=== PATIENT | male | born 1955 | race Caucasian/White ===

== ENCOUNTER 2016-07-10 08:29 | Outpatient (CLI) | payer MEDICARE ==
[~2016-07-10] VITALS: Ht 182.9 cm; Wt 72.7 kg
--- NOTE | ~2016-07-10 | HEMODYNAMI ---
PATIENT:AYE MATHIS MEDICAL RECORD: [id number] : 51 LOCATION:[facility] ADMISSION DATE: 07/10/16 Generatedon:07/10/201610:45 Patient name: AYE MATHIS Patient #: [id number] SSN: [id number] : 1955 Date of study: 07/10/2016 Page: Of Hemodynamic Procedure Report Patient Data Patient Demographics Procedure consent was obtained First Name: AYE Gender: Male Last Name: DEL : 1955 Patient #: [id number] Age: 60 year(s) Race: SSN: [id number] Additional ID: [id number] Contact details Address: [address] [place] [address] State: [place] City: [place] Zip code: [address] Past Medical History Allergies Allergen Reaction Date Comments Reported Penicillins 05/04/2014 Other allergy 05/04/2014 RED DYE Other allergy 07/10/2016 iodine Admission Admission Data Admission Date: 07/10/2016 Admission Time: 8:29 Arrival Date: 07/10/2016 Arrival Time: 10:30 Admit Source: Other Insurance Payor: Medicare Height (in.): 72 BSA: 1.93 (m2) Height (cm.): 182.88 BMI: 21.43 (kg/m2) Weight (lbs.): 158 Weight (kg.): 71.67 Lab Results Lab Result Date: 07/10/2016 Lab Result Time: 0:00 Biochemistry Name Units Result Min Max BUN mg/dl 23 --(----)-* 7 18 Creatinine mg/dl 0.9 --(-*--)-- 0.6 1.3 CBC Name Units Result Min Max Hemoglobin g/dl 12.9 -*(----)-- 13.5 17.5 Procedure Procedure Types Cath Procedure Diagnostic Procedure LHC LHC w/Coronaries Miscellaneous Procedures Moderate Sedation up to 30 minutes Procedure Description Procedure Date Procedure Date: 07/10/2016 Procedure Start Time: 10:34 Procedure End Time: 10:43 Procedure Staff Name Function Negro Guzmán MD Performing Physician Linda Yan RN Nurse Layne Byrne RT Scrub Erickson [place] RT Monitor Indication Angina Procedure Data Cath Procedure Fluoroscopy Diagnostic fluoroscopy Total fluoroscopy Time: 1.6 time: 1.6 min min Diagnostic fluoroscopy Total fluoroscopy dose: dose: 233.32 mGy 233.32 mGy Contrast Material Contrast Material Type Amount (ml) Isovue 370 97 Entry Location Entry Primary Successful Side Size Upsize Upsize Entry Closure [place]ton ccessful Closure Location (Fr) 1 (Fr) 2 (Fr) Remarks Device Remarks Radial Right 6 Fr Mechanical artery Short Compression Estimated blood loss: 5 ml Diagnostic catheters Device Type Used For End Catheter Placement Terumo 5Fr Jose Raul 110cm Multi-vessel catheter Angiography Procedure Complications No complications Procedure Medications Medication Administration Route Dosage Oxygen NC 2 l/min Heparin Flush Bag added to field 2 bags (1000units/500ml NS) Radial Cocktail added to field 1 syringe (Verapomil 2mg/Nitro 400mcg/Heparin 1500units) Fentanyl I.V. 50 mcg Versed I.V. 1 mg Fentanyl I.V. 25 mcg Versed I.V. 0.5 mg Fentanyl I.V. 25 mcg Versed I.V. 0.5 mg Radial Cocktail I.A. 1 syringe (Verapomil 2mg/Nitro 400mcg/Heparin 1500units) Hemodynamics Rest BSA: 1.93 (m2) HGB: 12.9 (g/dl) O2 Consumption: Estimated: 227.32 (ml/min) O2 Co nsumption indexed: Estimated:117.78 (ml/min/m) Heart Rate: 72 (bpm) Pressure Samples Time Site Value (mmHg) Purpose Heart Use Rate(bpm) 10:36 LV 11/4,8 Snapshot 92 Snapshots Pre Cath Intra NCS Post Cath Vital Signs Time Heart Resp SPO2 NIBP (mmHg) Rhythm Pain Sedation Rate (ipm) (%) Status Level (bpm) 10:17:11 75 20 97 145/80(124) NSR 0 (11) 10(A) , No pain 10:21:34 72 23 100 136/81(112) NSR 0 (11) 10(A) , No pain 10:25:54 71 22 99 135/81(114) NSR 0 (11) 10(A) , No pain 10:30:12 80 18 98 135/78(111) NSR 0 (11) 9(A) , No pain 10:34:26 80 16 93 135/79(120) NSR 0 (11) 9(A) , No pain 10:38:36 80 18 92 121/75(94) NSR 0 (11) 9(A) , No pain 10:42:52 89 16 96 121/76(101) NSR 0 (11) 9(A) , No pain Medications Time Medication Route Dose Verified Delivered Reason Notes Effectiveness by by 10:23:40 Oxygen NC 2 l/min Linda Linda used for Yan Yan well tester RN 10:23:51 Heparin Flush added 2 bags Linda Linda used for Bag to Yan Yan procedure (1000units/500ml field RN RN NS) 10:23:57 Radial Cocktail added 1 Linda Linda used for (Verapomil to syringe Yan Yan procedure 2mg/Nitro field RN RN 400mcg/Heparin 1500units) 10:27:43 Fentanyl I.V. 50 mcg Linda Linda for sedation Yan Yan RN RN 10:27:48 Versed I.V. 1 mg Linda Linda for sedation Yan Yan RN RN 10:32:37 Fentanyl I.V. 25 mcg Linda Linda for sedation Yan Yan RN RN 10:32:47 Versed I.V. 0.5 mg Linda Linda for sedation Yan Yan RN RN 10:34:56 Fentanyl I.V. 25 mcg Linda Linda for sedation Yan Yan RN RN 10:35:03 Versed I.V. 0.5 mg Linda Linda for sedation Yan Yan RN RN 10:36:28 Radial Cocktail I.A. 1 Linda Negro for (Verapomil syringe Yuriy conroy 2mg/Nitro RN 400mcg/Heparin 1500units) Procedure Log Time Note 10:00:30 Linda Yan RN sent for patient. Start room use. 10:08:08 Informed consent obtained and on chart 10:08:44 Indication : Angina 10:08:47 Diagnostic Cath Status : Elective 10:08:59 Patient Height : 182.88 inches 10:09:11 Patient Weight : 71.67 lbs 10:09:11 Insurance Payor : Medicare 10:09:16 Arrival Date: 07/10/2016 10:30:00 AM 10:09:22 Admit Source: Other 10::25 Lab Result : Creatinine 0.9 mg/dl 10::25 Lab Result : BUN 23 mg/dl 10:: Lab Result : Hemoglobin 12.9 g/dl 10:11:38 Time tracking: Regular hours 10:11:42 Plan of Care:Hemodynamics will remain stable., Cardiac rhythm will remain stable., Comfort level will be maintained., Respiratory function will remain adequate., Patient/ family verbilizes understanding of procedure., Procedure tolerated without complication., Recovers from procedure without complications.. 10:11:50 Patient received from Pre/Post Procedure Room to CCL 3 Alert and oriented. Tansferred to table in Supine position. 10:11:52 Warm blankets applied, and alex hugger turned on for patient comfort. 10:11:52 Correct patient and procedure confirmed by team. 10:11:53 ECG and BP/O2 sat monitors applied to patient. 10:15:55 Baseline sample Acquired. 10:15:55 Vital chart was started 10:15:59 Rhythm: sinus rhythm 10:16:01 Full Disclosure recording started 10:16:11 H&P Date Dictated: 07/03/2016 Within 30 days and on chart., H&P Addendum completed by physician on day of procedure. (MUST COMPLETE FOR ALL OUTPATIENTS). 10:16:13 Pre-procedure instructions explained to patient. 10:16:13 Pre-op teaching completed and patient verbalized understanding. 10:16:14 Family in waiting room. 10:16:15 Patient NPO since Midnight. 10:16:25 Patient allergic to Other allergyiodine 10:16:29 Is the patient allergic to Iodine/contrast media? Yes. 10:16:30 Was the patient premedicated? Yes 10:16:32 Is patient on blood thinner?Yes 10:16:35 ACC The patient was administered the following blood thiners within the last 24 hours: ACCAspirin 10:16:37 Patient diabetic? Yes. 10:21:21 If diabetic: On Metformin? Yes 10:21:25 If on Metformin: Last Dose? 07/09/2016 10:21:29 Previous problem with sedation/anesthesia? No ? 10:22:22 Snore? Yes 10:22:23 Sleep apnea? No 10:22:24 Deviated septum? No 10:22:24 Opens mouth fully? Yes 10:22:25 Sticks out tongue? Yes 10:22:27 Airway obstruction? No ? 10:22:31 Dentures? No ? 10:22:34 Pre procedure: right dorsailis pedis pulse 1+ Palpable, but thready & weak; easily obliterated 10:22:36 Patient pain scale 0/10 ?. 10:22:41 IV patent on arrival in left forearm with 0.9% NaCl at [facility]. 10:22:44 Lab results completed and on chart. 10:22:49 Right Radial & Right Groin area was prepped with chlora-prep and draped in sterile fashion 10:22:50 Alarms reviewed by R. N. 10:22:50 Sharps counted by scrub and verified by R.N. 10::58 Physician paged 10:23:40 Oxygen 2 l/min NC was given by Linda Yan RN; used for procedure; 10:23:51 Heparin Flush Bag (1000units/500ml NS) 2 bags added to field was given by Linda Yan RN; used for procedure; 10:23:57 Radial Cocktail (Verapomil 2mg/Nitro 400mcg/Heparin 1500units) 1 syringe added to field was given by Linda Yan RN; used for procedure; 10:24:58 Physician arrived 10::58 --------ALL STOP TIME OUT------ 10:24:58 Final Timeout: patient, procedure, and site verified with staff and physician. All members of the team are in agreement. 10:25:00 Right Radial & Right Groin site verified by team. 10:25:03 Physical assessment completed. ASA score P 2 - A patient with mild systemic disease as per Negro Guzmán MD. 10:25:06 Sedation plan: IV Moderate Sedation Versed, Fentanyl 10:25:10 Use device set Radial Dx 10:25:11 Acist Syringe opened to sterile field. 10:25:11 Medline Cath Pack opened to sterile field. 10:25:11 Bag Decanter opened to sterile field. 10:25:12 Terumo 6Fr Slender Glidesheath opened to sterile field. 10:25:12 St Javier 260cm J .035 wire opened to sterile field. 10:25:13 Acist Hand Control opened to sterile field. 10:25:13 Acist Manifold opened to sterile field. 10:25:13 Tegaderm 4 x 4 opened to sterile field. 10:27:43 Fentanyl 50 mcg I.V. was given by Linda Yan RN; for sedation; 10:27:48 Versed 1 mg I.V. was given by Linda Yan RN; for sedation; 10:32:36 Procedure started. 10:32:37 Fentanyl 25 mcg I.V. was given by Linda Yan RN; for sedation; 10::47 Versed 0.5 mg I.V. was given by Linda Yan RN; for sedation; 10:34:09 Local anesthetic to right radial artery with Lidocaine 2% by Negro Guzmán MD.INITIAL ACCESS ONLY 10:34:26 A 6 Fr Short sheath was inserted into the Right Radial artery 10:34:53 Zero performed for pressure channel P1 10:34:56 Fentanyl 25 mcg I.V. was given by Linda Yan RN; for sedation; 10:35:03 Versed 0.5 mg I.V. was given by Linda Yan RN; for sedation; 10:35:56 A Terumo 5Fr Jose Raul 110cm catheter was advanced over the wire and used for Multi-vessel Angiography. 10:36:28 Radial Cocktail (Verapomil 2mg/Nitro 400mcg/Heparin 1500units) 1 syringe I.A. was given by Negro Guzmán MD; for vasodilation; 10:36:47 LV hemodynamics recorded. 10:36:48 LV gram done using ALDRICH 10:36:55 EF : 65 % 10:37:01 RCA angiography performed. 10:37:16 Injector settings: Ml/sec: 3, Volume: 6, 10:38:20 LCA angiography performed. 10:39:18 Injector settings: Ml/sec: 3, Volume: 6, 10:40:43 Catheter removed. 10:41:39 Terumo TR Band Standard opened to sterile field. 10:41:50 Sheath removed intact; hemostasis achieved with Mechanical Compression to the Right Radial artery. 10:41:51 Procedure ended.(Physican Out) 10:42:09 Fluoroscopy time 01.60 minutes. 10:42:15 Flurop Dose total: 233.32 10:42:15 Fluoroscopy dose: 233.32 mGy 10:42:20 Contrast amount:Isovue 370 97ml. 10:42:23 Sharps counted by scrub and verified by R.N. 10:42:25 TR band inflated with 8cc of air. 10:42:26 Insertion/operative site no bleeding no hematoma. 10:42:30 Post right radial artery:stable 10:42:32 Post Procedure Pulses reassessed and unchanged 10:42:34 Post procedure rhythm: unchanged. 10:42:37 Estimated blood loss: 5 ml 10:42:38 Post procedure instruction explained to patient.Patient verbalizes understanding. 10:42:39 Patient needs reinforcement of post procedure teaching. 10:43:05 Procedure type changed to Cath procedure, Diagnostic procedure, LHC, LHC w/Coronaries, Miscellaneous Procedures, Moderate Sedation up to 30 minutes 10:43:07 Procedure and supply charges have been captured, reviewed, submitted and are correct. 10:43:11 Procedure Complication : No complications 10:43:14 Vital chart was stopped 10:43:14 See physician's report for complete and final results. 10:43:16 Report given to Pre/Post Procedure Room. 10:43:19 Patient transfered to Pre/Post Procedure Room with Stretcher. 10:43:22 Procedure ended. 10:43:22 Full Disclosure recording stopped 10:43:31 End room use (Document Last) Device Usage Item Name Manufacture Quantity Catalog Hospital Part Current Minimal Lot# / Number Charge Number Stock Stock Serial# Code Acist Acist 1 49511 994406 133413 188043 20 Syringe [employer] Inc Medline Cardinal 1 [id number] 627223 20849 454038 5 Cath Pack Health Bag Microtek 1 2001S 042501 85837 203881 5 Decanter [employer] Terumo 6Fr Terumo 1 [id number] 599743 175792 695723 [address] J[address] St Javier 1 124075 550419 562558 003409 30 260cm J .035 wire Acist Hand Acist 1 39938 758613 989567 295736 5 Control [employer] Inc Acist Acist 1 57480 783399 620579 221287 5 Fear Hunters [employer] Tegaderm 4 3M 1 [id number] 458781 768220 361309 5 x 4 Terumo 5Fr Terumo 1 81-4544 309936 322511 624254 5 Jose Raul 110cm catheter Terumo TR Terumo 1 [id number] 151029 957052 036955 40 Band Standard Signature Audit [place] Stage Time Signature Unsigned Intra-Procedure 07/10/2016 Layne Byrne 10:45:27 AM RT(R) Signatures Monitor : Erickson [place] RT Signature : Date : Time : [facility] [address] [place] [address]
[~2016-07-10 08:29] MED LIST: BAYER CHEWABLE81 MG PO; GLUCOPHAGE500 MG PO; GLUCOTROL XL 5 M5 MG PO; KLONOPIN1 MG PO; NITROQUICK0.4 MG SL; NORCO 10/325 TA1 TA1 PO; PLAVIX75 MG PO; PRAVACHOL40 MG PO
[2016-07-10 09:08] VITALS: BP 139/64; Ht 182.9 cm; Wt 72.7 kg
[2016-07-10 09:21] LABS: BASOPHILS 0.1 % (0.0-2.0); EOSINOPHILS 0 % (0-7); HEMATOCRIT 40.5 % (42.0-54.0); HEMOGLOBIN 12.9 g/dL (13.5-17.5); IMMATURE GRANULOCYTES 0.2 % (0-5); LYMPHOCYTES 8.7 % (15-50); MCHC 31.9 g/dL (31.0-37.0); MEAN PLATELET VOLUME 10.5 fL (7.4-10.4); MONOCYTES 5.1 % (2-11); NEUTROPHILS 85.9 % (40-80); PLATELET COUNT 175 10x3/uL (130-400); RBC 4.45 10x6/uL (4.20-6.10); RDW 15.8 % (11.5-14.5); WBC 10.3 10x3/uL (4.8-10.8)
[2016-07-10 09:42] LABS: CALC OSMOLALITY 284 mosm/kg (275-300); CARBON DIOXIDE 26.6 mmol/L (21.0-32.0); CHLORIDE - SERUM 104 mmol/L (98-107); CREATININE - SERUM 0.9 mg/dL (0.6-1.3); GLUCOSE 194 mg/dL (74-106); POTASSIUM - SERUM 4.9 mmol/L (3.5-5.1); SODIUM 138 mmol/L (136-145); UREA NITROGEN 23 mg/dL (7-18); eGFR NON AFRICAN AMERICAN > 90 mL/min (90-120)
--- NOTE | 2016-07-10 11:11 | NUR ---
1055 RECEIVED PT FROM [employer]UNTER TRAPPER, PT IS DROWSY, DENIES ANY C/O. TR BAND CDI TO RIGHT WRIST, AREA IS FREE FROM BLEEDING OR HEMATOMA. RIGHT HAND FINGERS WARM TO TOUCH, CAP REFILL IS BRISK. WRIST BRACE IS IN PLACE. FAMILY AT BEDSIDE, CALL LIGHT IN REACH. PO FLUIDS SERVED. 1110 PT TOLERATING PO FLUIDS WITH NO C/O NAUSEA. TR BAND CDI, PT DENIES NEEDS AT THIS TIME.
--- NOTE | 2016-07-10 12:03 | NUR ---
1200 TR BAND DEFLATION STARTED, NO BLEEDING OR HEMATOMA NOTED. PT DENIES ANY C/O. JEANNE PO FLUIDS WITH NO NAUSEA.
--- NOTE | 2016-07-10 12:52 | NUR ---
1240 TR BAND HAS BEEN REMOVED PER PROTCOL AND 2X2, TEADERM APPLIED TO SITE. NO BLEEDING OR HEMATOMA NOTED. PT DENIES ANY C/O CHEST PAIN. HAVE REVIEWED DC INSTRUCTIONS WITH PT AND WHO VERBALIZE UNDERSTANDING. PT DRESSING FOR DC TO HOME. 1255 PT ESCORTED TO PRIVATE AUTO VIA WC BY STAFF WITH DRIVING HIM HOME. PT DENIES ANY C/O AT DC.
--- NOTE | 2016-07-15 10:08 | OP ---
PATIENT NAME: AYE MATHIS MEDICAL RECORD: [id number] :51 LOCATION:D.CAT ADMISSION DATE: SURGEON: AMRK HOGUE MD DATE OF OPERATION: 07/10/2016 PROCEDURES: 1. Left heart catheterization. 2. Selective coronary angiography. 3. Left ventriculogram. INDICATION: Chest pain compatible with angina, coronary artery disease, and previous cardiac stenting. DESCRIPTION OF THE PROCEDURE: After informed consent was obtained and after detailed explanation of risks, benefits as well as alternative therapies, the patient elected to proceed with angiogram and heart catheterization. The right radial area was prepped and draped in normal sterile fashion. The right radial artery was cannulated via modified Seldinger technique with placement of 5-Estonian sheath. All catheters exchanged through this sheath. FINDINGS: Left ventriculogram was performed in standard 30-degree ALDRICH view, reveals good cardiac wall motion throughout all segments. Overall ejection fraction 70%. SELECTIVE CORONARY ANGIOGRAPHY: 1. Left main showed no significant angiographic disease. 2. Left anterior descending has mild irregularities, but no flow-limiting stenosis. 3. The left circumflex has previously placed stent with no significant restenosis. No disease elsewise throughout the left circumflex or its branches. 4. The right coronary has previously placed stent. This has mild irregularities, no significant restenosis. No disease elsewise throughout the RCA or its branches. OVERALL IMPRESSION: Wide patency of the previously placed stents with no significant restenosis. No disease elsewise. Continue medical management of the coronary artery disease and cardiac risk factors. TRANSINT:[id number] Voice Confirmation ID: [id number] DOCUMENT ID: [id number] MARK HOGUE MD at 1008 CC: [id number] DICTATION DATE: 07/10/16 1044 MOLDING UTILITY WORKER: 07/10/16 1904 DEP CLI 07/10/16 [facility] [address] [place] [address]
== END 2016-07-10 12:55 | disposition home or self-care (01) ==
LOC: D.CATH 08:29
PROVIDERS: Internal Medicine Interventional Cardiology
DX: I25.119 Atherosclerotic heart disease of native coronary artery with unspecified angina pectoris (principal); Z95.5 Presence of coronary angioplasty implant and graft

== ENCOUNTER 2017-01-17 18:16 | Inpatient (IN) | payer MEDICARE ==
[~2017-01-17] VITALS: Ht 182.9 cm; Wt 86.2 kg
--- NOTE | ~2017-01-17 | EEG ---
PATIENT:AYE MATHIS DATE OF SERVICE: 01/17/17 MEDICAL RECORD: [id number] DATE OF : 51 LOCATION:D.230 D.ICU ADMISSION DATE: 01/17/17 REFERRING PHYSICIAN: INTERPRETING PHYSICIAN: CHITO BUNDY MD DATE OF SERVICE: 01/18/2017 Referred by myself as an inpatient, currently in room 2305. ELECTROENCEPHALOGRAM NUMBER: [id number]. DATE OF EXAMINATION: 01/18/2017 at 10:30 a.m. DATE OF : 1955 TECHNICAL DATA: This electroencephalographic recording consisted of approximately 20 minutes of data collection utilizing the international 10/20 system of electrode placement and both referential and non-referential montages. Sixteen channels of electrocerebral recording are accompanied by a 17th channel dedicated to the electrocardiographic rhythm and 2 channels of electromyographic recording. Recording is performed entirely in the comatose state utilizing activation by photic stimulation as well as verbal and tactile stimulation. ELECTROENCEPHALOGRAPHIC DATA: The entirety of the recorded electrocerebral activity is performed in the comatose state. Electromyographic artifact is absent. Rapid eye movements are not seen. The study is monotonous and demonstrates no electrocerebral activity across the scalp throughout the recording, had a sensitivity of 3 microvolts per millimeter with a wide interelectrode distance through most of the recording. All deflections are accountable by electrocardiographic and other similar artifact related to the patient being in the ICU. No epileptiform discharges are seen. Photic stimulation as well as verbal and tactile stimulation induced no change in the recorded electrocerebral activity. INTERPRETATION: 1. Very low voltage recording (coma). 2. Absence of electrocerebral activity. This electroencephalographic recording demonstrates absence of all electrocerebral activity though it is not performed under standards for recording of electrocerebral silence. There is no electrical evidence of continuing brain activity on this study. Clinical correlation is required. TRANSINT:[id number] Voice Confirmation ID: [id number] DOCUMENT ID: [id number] ELECTROENCEPHALOGRAM REPORT [id number] AYE MATHIS CHITO BUNDY MD CC: [id number] DICTATION DATE: 01/18/17 1515 AUTO MOTOR MECHANIC: 01/19/17 0105 DIS IN 01/18/17 [id number] [place] [address]
[2017-01-17 18:39] LABS: BASOPHILS 0.6 % (0-2); EOSINOPHILS 1.4 % (0-7); HEMATOCRIT 33.2 % (42.0-54.0); HEMOGLOBIN 9.6 g/dL (13.5-17.5); IMMATURE GRANULOCYTES 7.1 % (0-5); MCH 27.4 pg (26.0-34.0); MCHC 28.9 g/dL (31.0-37.0); MCV 94.9 fL (80.0-100.0); MEAN PLATELET VOLUME 10.5 fL (7.4-10.4); MONOCYTES 5.4 % (2-11); NEUTROPHILS 50.5 % (40-80); PLATELET COUNT 157 10x3/uL (130-400); RDW 16.1 % (11.5-14.5); WBC 11.4 10x3/uL (4.8-10.8)
[2017-01-17 18:53] LABS: INR 1.41 (0.85-1.17)
[2017-01-17 18:54] LABS: APTT 71.7 SECONDS (22.8-39.4)
[2017-01-17 18:59] LABS: ALBUMIN 2.4 g/dL (3.4-5.0); ALKALINE PHOSPHATASE 53 U/L (46-116); ALT (SGPT) 170 U/L (10-68); CALCIUM 7.7 mg/dL (8.5-10.1); CARBON DIOXIDE 21.4 mmol/L (21.0-32.0); CHLORIDE - SERUM 107 mmol/L (98-107); CREATININE - SERUM 1.7 mg/dL (0.6-1.3); POTASSIUM - SERUM 5.3 mmol/L (3.5-5.1); PROTEIN - SERUM 5.6 g/dL (6.4-8.2); SODIUM 146 mmol/L (136-145); UREA NITROGEN 29 mg/dL (7-18); eGFR NON AFRICAN AMERICAN 43 mL/min (90-120)
[2017-01-17 19:00] LABS: BILIRUBIN - TOTAL 0.06 mg/dL (0.2-1.3); CALC OSMOLALITY 312 mosm/kg (275-300); GLUCOSE 389 mg/dL (74-106)
[2017-01-17 19:11] LABS: CKMB 3.1 U/L (0.0-3.6); CREATINE KINASE 378 UL (21-232); MAGNESIUM - SERUM 3.2 mg/dL (1.8-2.4); TROPONIN-I < 0.017 ng/mL (0.000-0.060)
[2017-01-17 19:46] LABS: APPEARANCE CLEAR (CLEAR); BILIRUBIN NEGATIVE (NEGATIVE); COLOR YELLOW (YELLOW); GLUCOSE NEGATIVE (NEGATIVE); KETONE NEGATIVE (NEGATIVE); LEUKOCYTE ESTERASE NEGATIVE (NEGATIVE); NITRITE NEGATIVE (NEGATIVE); PROTEIN TRACE mg/dL (NEGATIVE); UROBILINOGEN NORMAL (NORMAL)
[2017-01-17 23:00] VITALS: BP 113/57
--- NOTE | 2017-01-17 23:00 | NUR ---
PT ARRIVED VIA BED AND ER STAFF. INTUBATED AND UNRESPOSIVE TO STIMULI. PUPILS 6MM AND FIXED. SKIN PALE, WARM/DRY. LUNG SOUNDS RHONCHI THROUGHOUT. HR IRREGULAR. RADIAL PULSES WEAK, PEDAL PULSES DOPPLERABLE. BOWEL SOUNDS HYPOACTIVE. CHOI CATH INTACT WITH CLEAR/YELLOW URINE TO BEDSIDE DRAINAGE. LEVOPHED GTT INFUSING TO MAINTAIN SBP WITHIN PARAMETERS. DR. ANDREWS CALLED UPON ARRIVAL, NO NEW ORDERS REC'D AT THIS TIME. ROOM VISIBLE FROM NURSES STATION. CPOC.
--- NOTE | 2017-01-17 23:00 | NUR ---
CONSULT CALLED TO DR. BUNDY.
[2017-01-17 23:15] VITALS: BP 127/65
--- NOTE | 2017-01-17 23:15 | NUR ---
FAMILY AT BEDSIDE, UPDATE GIVEN AND ALL QUESTIONS ANSWERED.
[2017-01-17 23:16] VITALS: BP 113/57; BMI 25.8
[2017-01-17 23:30] VITALS: BP 122/65
[2017-01-17] MEDS ORDERED: TRAZODONE HCL50 MG (23:38)
[2017-01-17] MEDS ORDERED: GABAPENTIN100 MG (23:38)
[2017-01-17] MEDS ORDERED: CELEXA20 MG (23:39)
[2017-01-17] MEDS ORDERED: METOPROLOL TART50 MG PO (23:39)
[2017-01-17] MEDS ORDERED: FLUTICASONE PRO16 GM NASAL (23:39)
[2017-01-17] MEDS ORDERED: ULTRAM50 MG PO (23:39)
[2017-01-17 23:45] VITALS: BP 101/52
[2017-01-18] VITALS (62 sets, daily range): BP systolic 48–135; BP diastolic 25–106; Ht 182.9 cm; Wt 86.2 kg
--- NOTE | 2017-01-18 00:05 | NUR ---
REC'D CALLBACK FROM DR. ABREU REGARDING CONSULT. NEW ORDERS REC'D.
[2017-01-18 00:52] LABS: GLUCOSE 281 mg/dL (74-106)
[2017-01-18 00:53] LABS: CKMB 82.1 U/L (0.0-3.6); CREATINE KINASE 2781 UL (21-232); POTASSIUM - SERUM 8.7 mmol/L (3.5-5.1); TROPONIN-I 0.302 ng/mL (0.000-0.060)
--- NOTE | 2017-01-18 03:00 | NUR ---
REASSESSMENT COMPLETE, SEE FLOWSHEET FOR ALL FINDINGS. PUPILS 6MM, FIXED. UNRESPOSIVE TO STIMULI, EXTREMITIES FLACCID. ORAL CARE ADM. SPO2 96, 80% FIO2. PERIPHERAL PULSES PRESENT. LEVOPHED GTT REMAINS INFUSING TO MAINTAIN SBP. WILL CONTINUE TO MONITOR. ROOM VISIBLE FROM NURSES STATION.
--- NOTE | 2017-01-18 05:30 | NUR ---
PT HAVING CONTINUOUS LIQUID BOWEL MOVEMENT, RECTAL TUBE PLACED. HR ON MONITOR SHOWING 90, IRREGULAR. HR PALP 50. BP CONTINUOUS TO TREND DOWN DESPITE LEVOPHED GTT, VASOPRESSIN AND YUDELKA GTT INITIATED TO MAINTAIN SBP ABOVE 90. FAMILY UPDATED OF PT STATUS.
[2017-01-18 06:33] LABS: BASOPHILS 0.1 % (0-2); EOSINOPHILS 0 % (0-7); HEMATOCRIT 35.8 % (42.0-54.0); HEMOGLOBIN 10.1 g/dL (13.5-17.5); IMMATURE GRANULOCYTES 1.2 % (0-5); LYMPHOCYTES 3.1 % (15-50); MCH 26.8 pg (26.0-34.0); MCHC 28.2 g/dL (31.0-37.0); MEAN PLATELET VOLUME 9.9 fL (7.4-10.4); MONOCYTES 4.9 % (2-11); NEUTROPHILS 90.7 % (40-80); RBC 3.77 10x6/uL (4.20-6.10); RDW 16.3 % (11.5-14.5)
[2017-01-18 06:35] LABS: PLATELET COUNT 204 10x3/uL (130-400); WBC 19.1 10x3/uL (4.8-10.8)
[2017-01-18 06:38] LABS: INR 1.53 (0.85-1.17); PROTIME 18.3 SECONDS (11.6-15.0)
[2017-01-18 07:07] LABS: ALBUMIN 2.6 g/dL (3.4-5.0); ALKALINE PHOSPHATASE 83 U/L (46-116); AMYLASE - SERUM 166 U/L (25-115); BILIRUBIN - TOTAL 0.22 mg/dL (0.2-1.3); CALC OSMOLALITY 304 mosm/kg (275-300); CARBON DIOXIDE 21.3 mmol/L (21.0-32.0); CHLORIDE - SERUM 115 mmol/L (98-107); CKMB 128.7 U/L (0.0-3.6); GLUCOSE 179 mg/dL (74-106); LIPASE 588 U/L (73-393); MAGNESIUM - SERUM 2.4 mg/dL (1.8-2.4); PRO BNP 6395 pg/mL (0-125); SODIUM 145 mmol/L (136-145); THYROID STIMULATING HORMONE 2.85 uIU/mL (0.36-3.74); UREA NITROGEN 46 mg/dL (7-18); eGFR NON AFRICAN AMERICAN 23 mL/min (90-120)
[2017-01-18 07:08] LABS: ALT (SGPT) 414 U/L (10-68); CALCIUM 6.6 mg/dL (8.5-10.1); CREATINE KINASE 6045 UL (21-232); POTASSIUM - SERUM 7.8 mmol/L (3.5-5.1)
[2017-01-18 07:09] LABS: TROPONIN-I 0.879 ng/mL (0.000-0.060)
--- NOTE | 2017-01-18 10:01 | NUR ---
YVETTE NOTIFIED OF PROBABLE/IMMINENT BRAIN . ALL INFORMATION GIVEN AND AWAITING CALL BACK.
--- NOTE | 2017-01-18 10:14 | NUR ---
LAB RESULTS GIVEN TO YVETTE. AWAITING CALL BACK.
--- NOTE | 2017-01-18 10:16 | NUR ---
REC'D CALL BACK FROM [facility]. NOT CANDIDATE FOR ORGAN DONATION. WILL NEED TO CALL BACK AT TIME OF CARDIAC FOR FURTHER EVAL FOR TISSUE DONATION.
--- NOTE | 2017-01-18 11:30 | NUR ---
TO [employer] FOR CEREBRAL BLOOD FLOW STUDY.
--- NOTE | 2017-01-18 11:40 | NUR ---
RETURN FROM NUCLEAR MED. RESULTS OF CEREBRAL BLOOD FLOW STUDY TO BE CALLED TO DR. BUNDY.
[2017-01-18 12:32] LABS: CREATINE KINASE 6541 UL (21-232); TROPONIN-I 0.936 ng/mL (0.000-0.060)
--- NOTE | 2017-01-18 13:43 | NUR ---
RESULTS OF CEREBRAL BLOOD FLOW STUDY GIVEN TO FAMILY. FAMILY AT BEDSIDE.
--- NOTE | 2017-01-18 14:45 | NUR ---
REQUESTING TO EXTUBATE ONCE ALL FAMILY HERE.
--- NOTE | 2017-01-18 15:05 | NUR ---
DR. ANDREWS NOTIFIED OF 'S REQUEST TO TERMINALLY EXTUBATE. NEW ORDERS REC'D.
--- NOTE | 2017-01-18 15:20 | NUR ---
ALL VASOPRESSORS DC'D,
--- NOTE | 2017-01-18 15:24 | NUR ---
EXTUBATED AND PLACED ON O2 VIA NC @ 2 LPM. NO SPONTANEOUS RESP EFFORT NOTED. FAMILY @ BEDSIDE.
--- NOTE | 2017-01-18 15:31 | NUR ---
ASYSTOLE ON MONITOR. RELEASE OF BODY FORM SIGNED BY .
--- NOTE | 2017-01-18 16:43 | NUR ---
BODY RELEASED TO [facility].
--- NOTE | 2017-01-20 16:35 | NUR ---
Per CMS protocol, restraint report logged into data base.
== END 2017-01-18 16:48 | DRG 208 ==
LOC: D.ER 18:16 → D.ICU 20:36
PROVIDERS: Family Medicine; ADMIT Family Medicine Adult Medicine
PROC: 5A1935Z Respiratory Ventilation, Less than 24 Consecutive Hours (ICD-10-PCS; principal; 2017-01-17)
PROC: 0T9B70Z Drainage of Bladder with Drainage Device, Via Natural or Artificial Opening (ICD-10-PCS; 2017-01-17)
PROC: 0D20X0Z Change Drainage Device in Upper Intestinal Tract, External Approach (ICD-10-PCS; 2017-01-17)
DX: J96.90 Respiratory failure, unspecified, unspecified whether with hypoxia or hypercapnia (principal); N17.0 Acute kidney failure with tubular necrosis; K72.00 Acute and subacute hepatic failure without coma; K76.7 Hepatorenal syndrome; I25.10 Atherosclerotic heart disease of native coronary artery without angina pectoris; Z95.5 Presence of coronary angioplasty implant and graft; E11.9 Type 2 diabetes mellitus without complications; I10 Essential (primary) hypertension; J44.9 Chronic obstructive pulmonary disease, unspecified; E78.5 Hyperlipidemia, unspecified; Z72.0 Tobacco use; I95.9 Hypotension, unspecified